=== PATIENT | male | born 1985 | race Caucasian/White ===

== ENCOUNTER 2024-03-18 01:37 | Emergency (ER) | payer MEDICAID ==
[2024-03-18 01:43] VITALS: PULSE 109; O2SAT 98
[2024-03-18] MEDS ORDERED: DIPHENHYDRAMINE 25MG CAPSULE PO ONE (03:00)
== END 2024-03-18 02:40 | disposition left against medical advice (07) ==
LOC: ER 01:37
DX: Z00.00 Encounter for general adult medical examination without abnormal findings (principal); Z53.21 Procedure and treatment not carried out due to patient leaving prior to being seen by health care provider